=== PATIENT | male | born 1970 | race Caucasian/White ===

== ENCOUNTER 2020-09-06 13:14 | Inpatient (IN) | payer OTHER ==
[~2020-09-06] VITALS: Ht 170.2 cm; Wt 91.9 kg
[2020-09-06 13:16] VITALS: BP 161/85
[2020-09-06] MEDS ORDERED: GLUCAGON EMERGEN1 MG INJECTION (13:46)
[2020-09-06] MEDS ORDERED: LEVEMIR100 UNIT/2 SUBQ (13:47)
[2020-09-06] MEDS ORDERED: NOVOLIN R100 UNIT/1 SUBQ (13:49)
[2020-09-06] MEDS ORDERED: NOVOLIN 70100 UNIT/3 SUBQ (13:49)
[2020-09-06 13:50] LABS: URINE BILIRUBIN NEGATIVE (Negative); URINE BLOOD NEGATIVE (Negative); URINE CLARITY CLEAR; URINE COLOR YELLOW; URINE GLUCOSE-RANDOM* 3+ (Negative); URINE KETONES 2+ (Negative); URINE LEUKOCYTES-REFLEX NEGATIVE (Negative); URINE NITRITE-REFLEX NEGATIVE (Negative); URINE PROTEIN (DIPSTICK) NEGATIVE (Negative); URINE SPECIFIC GRAVITY 1.015 (1.005-1.035); URINE UROBILINOGEN 0.2 E.U./dl (0.2-1.0)
[2020-09-06] MEDS ORDERED: OLANZAPINE10 M1 PO (13:50)
[2020-09-06] MEDS ORDERED: CHILDREN'S ZYRT10 M1 PO (13:51)
[2020-09-06] MEDS ORDERED: ABILIFY10 MG PO (13:51)
[2020-09-06] MEDS ORDERED: ERYTHROMYCIN250 M1 PO ×2 (13:52)
[2020-09-06] MEDS ORDERED: FERRETTS325 MG PO (13:52)
[2020-09-06] MEDS ORDERED: REGLAN 5 MG TAB5 MG PO (13:53)
[2020-09-06] MEDS ORDERED: LORATIDINE 10 M10 M1 PO (13:53)
[2020-09-06] MEDS ORDERED: NEURONTIN 300M300 M2 PO (13:53)
[2020-09-06] MEDS ORDERED: MIRALAX119 GM PO (13:54)
[2020-09-06] MEDS ORDERED: PROTONIX40 M2 PO (13:54)
[2020-09-06] MEDS ORDERED: TOPROL XL25 MG PO (13:54)
[2020-09-06] MEDS ORDERED: PRAZOSIN 1 MG CA1 M1 PO (13:55)
[2020-09-06] MEDS ORDERED: RISPERDAL4 M1 PO (13:56)
[2020-09-06] MEDS ORDERED: SENNA8.8 MG/5 M PO (13:56)
[2020-09-06] MEDS ORDERED: CARAFATE1 GM PO (13:57)
[2020-09-06] MEDS ORDERED: FLOMAX0.4 MG PO (13:58)
[2020-09-06] MEDS ORDERED: VENLAFAXINE HCL75 M2 PO (14:00)
[2020-09-06] MEDS ORDERED: XARELTO20 MG PO (14:00)
[2020-09-06] MEDS ORDERED: TYLOPHEN500 MG PO (14:01)
[2020-09-06] MEDS ORDERED: PROAIR RESPICL90 MCG INH (14:01)
[2020-09-06] MEDS ORDERED: LAXATIVE SUPPOS10 MG RECTAL (14:02)
[2020-09-06] MEDS ORDERED: BACLOFEN 10MG T10 MG PO (14:02)
[2020-09-06 14:25] LABS: BE(vivo) -6.5 mmol/L (-2 to +3); HCO3 18.1 mmol/L (22.0-26.0); PCO2 VENOUS 33.3 mmHg (41.0-51.0); PO2 VENOUS 36.9 mmHg (35.0-45.0)
[2020-09-06 14:39] LABS: ABSOLUTE NEUTROPHILS 6.1 thou/uL (1.4-8.2); BASOPHILS 1.3 % (0.0-2.0); EOSINOPHILS 0.4 % (0.0-3.0); LYMPHOCYTES 7.7 % (24.0-44.0); MCH 28.8 pg (26.0-34.0); MCHC 31.5 g/dL (28.0-37.0); MCV 91.2 fL (80.0-100.0); MONOCYTES 6.3 % (1.0-8.0); PLATELET COUNT 194 thou/uL (150-400); POLYS 84.3 % (36.0-66.0); RBC 4.16 mil/uL (4.50-6.00); RDW 15.2 % (10.5-14.5); WBC 7.2 thou/uL (4.0-11.0)
[2020-09-06 14:55] LABS: CREATININE 1.2 mg/dL (0.7-1.3); POTASSIUM 5.4 mmol/L (3.5-5.1)
[2020-09-06 14:58] LABS: ALBUMIN 3.4 g/dL (3.4-5.0); TOTAL BILIRUBIN 1.3 mg/dL (0.2-1.0); TOTAL PROTEIN 7.1 g/dL (6.4-8.2)
[2020-09-06 17:04] LABS: CHOLESTEROL 244 mg/dL (<200); HDL CHOLESTEROL 59 mg/dL (>40); LDL CHOLESTEROL 158 mg/dL (<100); TC:HDL 4.1 Ratio (Not establshd); TRIGLYCERIDE 135 mg/dL (<150); VLDL 27 mg/dL (<40)
[2020-09-06 17:28] LABS: TSH 1.083 uIU/mL (0.358-3.740)
[2020-09-06] MEDS ORDERED: DICYCLOMINE HCL20 MG PO (19:43)
[2020-09-06] MEDS ORDERED: ALLERGY RELIEF25 MG PO (19:43)
[2020-09-06] MEDS ORDERED: GLUTOSE 1537.5 GM PO (19:44)
[2020-09-06] MEDS ORDERED: HYDROXYZINE HCL50 MG PO (19:45)
[2020-09-06] MEDS ORDERED: IPRAT-ALBUT 0.5-3 ML INH ×2 (19:45→19:46)
[2020-09-06] MEDS ORDERED: NITROSTAT0.4 M1 SUBLING (19:46)
[2020-09-06] MEDS ORDERED: OXYCODONE HCL5 MG PO (19:56)
[2020-09-06] MEDS ORDERED: ZUPLENZ4 MG PO (19:56)
[2020-09-06] MEDS ORDERED: PERCOCET 5-3251 EACH PO ×2 (19:57)
[2020-09-06] MEDS ORDERED: ROBAFEN DM COU473 ML PO (19:58)
[2020-09-06] MEDS ORDERED: TRAZODONE HCL50 MG PO (19:59)
[2020-09-06 23:28] VITALS: BP 90/48
[2020-09-06 23:45] VITALS: BP 96/55
[2020-09-07] VITALS (8 sets, daily range): BP systolic 74–115; BP diastolic 31–64
--- NOTE | 2020-09-07 02:34 | NUR ---
Patient admitted under the care of Dr. Mcgill for the diagnosis of uncontrolled diabetes and abdominal pain from [place] at [facility]. Patient reported abdominal pain, N/V/D since 0500 on 09/06/20. Patient has guardianship for placement only. Alert and oriented x4. Able to make all medical decisions. Consents signed by patient. NSR. Lungs CTA to all lobes. Bowel sounds x4, soft, flat. Colostomy present to right upper quadrant. History of Schizophrenia, GERD, DM, Anemia, BPH, Neuropathy, Depression, Afib, PE, Colon carcinoma. Full Code. Carb controlled diet. Continent of bladder. Urinal at bedside. Patient has port to left upper chest, accessed. Patient is w/c bound. Foot drop observed to bilateral feet. Wound to right heel present, skin intact, dark brown/black in color. Order obtained for pressure relieving boots to bilateral lower extremities. SCDs in place to bilateral lower extremities. Open area observed to midline abdomen. Patient reports that he had surgery approximately 2 years ago and the incision never healed. Cyrus area observed to left buttock, z-guard applied. Order placed for wound nurse consult. Patient reported abdominal pain rated 2/10. Reported that PRN Oxycodone received in the ED reduced pain. Patient resting quietly in bed at this time.
--- NOTE | 2020-09-07 08:24 | NUR ---
WOUND CONSULT; THE PATIENT HAS SKIN CHANGES CONSISTANT WITH TO THE LEFT BUTTOCK, AND UNSTABLE BLISTER. THE RIGHT HEEL HAS DISCOLORATION CONSISTANT WITH A RESOLVING BLISTER. THE HEEL IS NOT BOGGY. 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 THE FISTULA HAS HEALTHY RED TISSUE WITH NO ODOR OR S/S OF INFECTION. RECOMMENDATIONS; -BETADINE TO RIGHT HEEL(FLOAT HEELS) -LEFT BUTTOCK; PAINT WITH BEDTADINE COVER WITH A BORDER FOAM, M/W/F PRN DISCUSSED WITH MARLENY
--- NOTE | 2020-09-07 08:45 | NUR ---
ASSESSMENT: CM REVIEWED CHART. PT WAS ADMITTED FROM [facility] AT [facility]. PER REPORT PT TESTED POSTITIVE FOR COVID [address] BOWSER HAS BEEN CONSULTED TO SEE PATIENT FOR POSSIBLE ABDOMINAL WALL FISTULA. CM REACHED OUT TO [facility] WHO REPORTS PT USES A WHEELCHAIR FOR AMBULATION BUT IS NORMALLY ABLE TO TRANSFER HIMSELF FROM CHAIR TO BED. PT HAS A LEGAL GUARDIAN KAVITHA RAMIREZ. CM CONTACTED PA OFFICE AT THE NUMBER LISTED AND THEY STATE THEY WERE AWARE PT WAS HERE. WILL AWAIT FURTHER RECOMMENDATIONS. PLANS ARE TO RETURN TO [facility] AT [facility] ONCE MEDICALLY STABLE. CM FAXED FACILITY CLINICAL. CM WILL CONTINUE TO FOLLOW TO ASSIST NEEDED.
--- NOTE | 2020-09-07 09:13 | NUR ---
OSTOMY CARE; PT ALERT, COOPERATIVE, STATES HE HAD COLOSTOMY SURGERY DONE ~3YEARS AGO AT [facility], FISTULA OCCURRED AT THAT TIME, PER PT DRAINS SCANT AMT, SMALL YELLOWISH DISCHARGE THIS AM, DENIES STOOL PER FISTULA. SURROUNDING SKIN INTACT, FISTULA STOMA ~ 3MC IN SIZE, PINK VIABLE TISSUE, COLOSTOMY L LOWER ABD, STOMA PINK VIABLE BUDDED W/ BROWN MUSHY STOOL NOTED, PERISTOMAL SKIN INTACT, UNSURE HOW POUCH HAS BEEN ON? CHANGED USING LYNDSEY CUT TO FIT APPLIANCE W/ ADAPT RING UNDER WAFER RECOMMENDATIONS; VASELINE GAUZE TO FISTULA, COVER W/ BORDER FOAM DRSG DAILY AND PRN, LYNDSEY CUT TO FIT APPLIANCE TO COLOSTOMY, CHANGE Q 3-5 DAYS AND PRN EMPTY PRN FORESTRY ADVISER AWARE
--- NOTE | 2020-09-07 09:30 | NUR ---
Nutrition: consulted for wound; stage II lt buttock, pt is WC bound. Pt with c/o N/V and abd pain starting yesterday morning. Pt c/o nausea this am. BG >500. Na and CO2 low, K high, albumin WNL. Insulin and other meds reviewed. Pt with colostomy, hx of HTN. Expect improved appetite as nausea resolves; F/u in 1-2 days.
--- NOTE | 2020-09-07 15:47 | NUR ---
PT HAD LOW BP 86/45, [address] CASTAÑEDA, HE SAID RECHECK BP IN 30 MINS AND REPORT BACK IF ITS NOT WNL. PT REPORTS HAVING AN UPSET STOMACH. NO OTHER SYMPTOMS NOTED.
--- NOTE | 2020-09-07 21:17 | NUR ---
ASSUMED CARE OF PT AT 0700. PT IS A&OX4 AND VITAL SIGNS ARE STABLE. PT REPORTS PAIN TO ABDOMEN, MANAGED WITH PO NORCO. NAUSEA AND ITTCHING REPORTED AND MANAGED WITH IV MEDICAITONS. COLOSTOMY CHANGED BY WOUND/OSTOMY NURSE THIS SHIFT. SURGEON CONSULTED FOR ABDOMINAL FISTULA, NO ORDERS AT THIS TIME FOR SURGERY. PRAFO BOOTS ORDERED FOR PRESSURE RELIEF. PT SELF TURNS, BARRIER CREAM APPLIED TO BUTTOCKS NEEDED. PORT A CATH TO LEFT CHEST ACCESSED. FALL PRECAUTIONS IN PLACE AND NURSING WILL CONTINUE TO MONITOR.
[2020-09-08 01:06] LABS: GLYCOHEMOGLOBIN (HGB A1C) 7.9 % (4.8-5.6)
--- NOTE | 2020-09-08 04:02 | NUR ---
assumed care approx 1900 evening 09/07. pt sleeping at change of shift. pt awoke for meds, alert and oriented x4, appropriate and cooperative. colostomy intact with loose stool in bag. IVF infusing without difficulty. pt took meds with water tolerating well. pt with blood sugar of 58 this night, given snack and juice and went up to 91. pt now resting in bed, denies complaints. bed alarm on and call light in reach. will continue to monitor.
[2020-09-08 04:09] VITALS: BP 89/38
[2020-09-08 07:26] VITALS: BP 115/58
--- NOTE | 2020-09-08 10:22 | NUR ---
PT CARE ASSUMED AT 0700. A&Ox4. URINAL AT BEDSITE. BLOOD SUGARS CONTROLLED WELL ON SLIDING SCALE. FISTULA DRAINING WELL. PT REQUESTING BENADRYL AND ZOFRAN PER IV. EDMUND CATH PLACEMENT VERIFIED WITH AN ADENDUM OF CHEST XRAY TAKEN ON 09/06. BP STABLE DURING THIS SHIFT. DEAF ON THE R. EAR. FLUIDS INFUSING. DRESSING CHANGE COMPLEETE. DISCHARGE PICTURES TAKEN. DISCHARGE ORDERS ENTERED. AWAITING TRANSPORTATION BACK TO HIS ASSISTED LIVING. FALL PROTOCOL IN PLACE. CALL LIGHT IN REACH. WILL CONTINUE TO MONITOR.
[2020-09-08] MEDS ORDERED: LANTUS SUBQ ×2 (10:23→10:32)
[2020-09-08] MEDS ORDERED: HUMALOG100 UNIT/1 SUBQ ×3 (10:24→10:32)
[2020-09-08] MEDS ORDERED: AUGMENTIN 875-1 EACH PO (10:32)
--- NOTE | 2020-09-08 13:00 | NUR ---
ON-GOING ASSESSMENT: CM REVIEWED CHART AND SPOKE WITH ATTENDING WHO STATES PT IS MEDICALLY STABLE TO GO BACK TO [facility] TODAY. CM CONTACTED PTS GUARDIAN KAVITHA DAILY AND GOT APPROVAL FOR PATIENT TO GO BACK TO FACILITY. CM SPOKE WITH ADMISSIONS AT [facility] WHO REPORTS THAT PT NEEDS A NEGATIVE COVID TEST TO RETURN. BEDSIDE RN ORDERED TEST AND IT IS CURRENTLY PENDING. IF RESULT COMES BACK NEGATIVE [facility] CAN ACCEPT HIM BACK TODAY AND [facility] WILL HAVE TO ARRANGE TRANSPORTATION THROUGH [facility] AT [phone]. CHART COPY HAS BEEN ORDERED AND OCCUPATIONAL THER NOTIFIED. NUMBER FOR REPORT IS [phone]. CM WILL AWAIT RESULTS FROM COVID TEST PRIOR TO DISCHARGE. CM FAXED DISCHARGE ORDERS TO [facility] FAX [phone]. WILL AWAIT COVID RESULTS.
[2020-09-08] MEDS ORDERED: NOVOLOG100 UNIT/1 SUBQ (13:12)
[2020-09-08] MEDS ORDERED: LEVEMIR100 UNIT/1 SUBQ (13:12)
[2020-09-08 16:09] VITALS: BP 131/76
== END 2020-09-08 17:47 | DRG 872 ==
LOC: ER 13:14 → 4S 16:44 → EROBS 16:44 → 4S 23:50
PROVIDERS: Emergency Medicine; ADMIT Hospitalist; ATTEND Hospitalist
DX: A41.9 Sepsis, unspecified organism (principal); K63.2 Fistula of intestine; G82.20 Paraplegia, unspecified; S31.109A Unspecified open wound of abdominal wall, unspecified quadrant without penetration into peritoneal cavity, initial encounter; E11.65 Type 2 diabetes mellitus with hyperglycemia; E86.0 Dehydration; Z20.828 Contact with and (suspected) exposure to other viral communicable diseases; K59.00 Constipation, unspecified; N40.0 Benign prostatic hyperplasia without lower urinary tract symptoms; K21.9 Gastro-esophageal reflux disease without esophagitis; I48.91 Unspecified atrial fibrillation; E11.40 Type 2 diabetes mellitus with diabetic neuropathy, unspecified; N48.1 Balanitis; I25.2 Old myocardial infarction; Z86.718 Personal history of other venous thrombosis and embolism; Z88.2 Allergy status to sulfonamides; Z88.8 Allergy status to other drugs, medicaments and biological substances; Z93.3 Colostomy status; Z82.49 Family history of ischemic heart disease and other diseases of the circulatory system; Z93.1 Gastrostomy status; Z79.899 Other long term (current) drug therapy; X58.XXXA Exposure to other specified factors, initial encounter; Y93.89 Activity, other specified; Y92.89 Other specified places as the place of occurrence of the external cause; Y99.8 Other external cause status
CPT/HCPCS: 10100; 10195